=== PATIENT | male | born 1960 | race Caucasian/White ===

== ENCOUNTER 2019-08-03 22:20 | Observation (INO) ==
--- NOTE | 2019-08-03 23:01 | PROVIDER DOCUMENTATION ---
This chart was entered by Hugo Tolentino Scribe, acting as scribe for Bishnu Garrison MD. HPI-Neurological Disorder - General Chief Complaint: Headache Stated Complaint: HEAD PAIN Time Seen by Provider: 08/03/19 22:30 Source: patient, family Allergies/Adverse Reactions: Patient Allergies Allergy/AdvReac Type Severity Reaction Status Date / Time No Known Allergies Allergy Verified 08/03/19 22:50 Home Medications: Home Medication List Medication Instructions Recorded Confirmed Last Taken Type Multivitamin [Once Daily] 1 each PO DAILY 12/12/15 08/03/19 12/12/15 03:00 History Alprazolam 1 mg PO TID 08/01/19 08/03/19 Unknown History Celecoxib 1 cap PO DAILY 08/01/19 08/03/19 Unknown History Gabapentin 2 tab PO BID 08/01/19 08/03/19 Unknown History Phenelzine Sulfate 1 tab PO 4XDAY 08/01/19 08/03/19 Unknown History Quetiapine Fumarate 1 - 2 tab PO HS 08/01/19 08/03/19 Unknown History - History of Present Illness-Neuro Nature of Presenting Problem: Pt is a 59 yom who presents to the ED with a CC of headache. Pt reports he had surgery on his elbow five days ago. Pt reports he fell in his bathroom and hit his head four days ago. Pt reports he was seen here at [facility] two days ago for persistent headache and noted to have normal head CT. Pt reports he was sitting on his couch tonight, started coughing, and states he felt a pop in his head. Pt states since then he has had a severe headache and feel nauseas. Pt states it is a global headache. Headache Location: reports: global Severity: reports: mild Onset/Duration: reports: 1-3 hours ago Timing: reports: still present Character of Altered Mental Status: reports: confused Any recent trauma/injury?: reports: minor, to head Cognitive Baseline: alert but confused Gait Baseline: walks without assistance Associated Symptoms: reports: headache, nausea Similar Symptoms Previously?: Yes Recently seen or treated by another doctor?: Yes Review of Systems - Adult - REVIEW OF SYSTEMS - ADULT Constitutional: reports: see HPI Eyes: reports: see HPI Ears, Nose, Mouth & Throat: reports: no symptoms reported Cardiovascular: reports: no symptoms reported Respiratory: reports: see HPI, cough Gastrointestinal: reports: see HPI, nausea Genitourinary: reports: no symptoms reported Musculoskeletal: reports: see HPI, muscle aches Integumentary: reports: no symptoms reported Neurological: reports: see HPI, headache/migraines Psychiatric: reports: no symptoms reported Endocrine: reports: no symptoms reported Hematologic/Lymphatic: reports: no symptoms reported Allergic/Immunologic: reports: no symptoms reported All Other Systems: Reviewed and Negative Past History - Adult - PAST MEDICAL HISTORY-ADULT Review of Records: reports: Old Records Reviewed, Nursing Assessment Review, Medications Reviewed, Social history reviewed & non-contributory. Major Childhood Illnesses: reports: denies history Cardiovascular: reports: denies history Respiratory: reports: denies history Gastrointestinal: reports: denies history Obstetrical/Gynecological: reports: denies history Genitourinary: reports: denies history Musculoskeletal: reports: denies history Neurological: reports: denies history Endocrine/Immune: reports: denies history Other Conditions: reports: denies history - IMMUNIZATION STATUS Childhood Immunizations: See Nurse Assessment Flu Vaccine: See Nurse Assessment - FAMILY HISTORY Family History: reviewed, not pertinent - SOCIAL HISTORY Smoking: denies, non-smoker Substance Use: none/never, denies Alcohol Use Frequency: never Physical Exam- Neurological - Physical Exam-Neuro Initial Vital Signs Reviewed: Yes General Appearance: alert, mild distress Eye Exam: right eye: abnormal pupil (dilated right pupil 5mm, 3mm left pupil), bilateral eye: EOMI HENMT: moist mucous membranes Head Injury: other Neck: non-tender, full range of motion Respiratory: chest non-tender, lungs clear, normal breath sounds, no pleuratic chest pain, no respiratory distress, no accessory muscle use Cardiovascular: normal peripheral pulses, regular rate, rhythm, no edema, no gallop, no JVD, no murmur Abdominal Exam: soft 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 Exam: abnormal pupil position Integumentary: normal color, warm/dry Progress - PLAN OF CARE/RESULTS Progress/Plan/Lab Results: Vital Signs - 8 hr 08/03/19 22:25 Temperature 97 F L Pulse Rate 53 L Respiratory Rate 16 Blood Pressure 184/98 O2 Sat by Pulse Oximetry 96 Laboratory Results - last 24 hr 08/03/19 08/03/19 08/03/19 23:08 23:08 23:16 WBC 8.07 RBC 4.96 Hgb 15.3 Hct 44.5 MCV 89.7 MCH 30.8 MCHC 34.4 RDW Std Deviation 12.4 Plt Count 181 MPV 10.6 H Immature Gran % (Auto) 0.6 H Neut % (Auto) 60.1 Lymph % (Auto) 22.8 [place] % (Auto) 10.8 H Eos % (Auto) 5.0 Baso % (Auto) 0.7 Immature Gran # (Auto) 0.05 H Neut # (Auto) 4.85 Lymph # (Auto) 1.84 [place] # (Auto) 0.87 H Eos # (Auto) 0.40 Baso # (Auto) 0.06 PT 13.0 INR 0.94 Sodium 137 Potassium 5.6 H Chloride 101 Carbon Dioxide 24 L Anion Gap 12 BUN 18 Creatinine 0.9 Estimated GFR/1.73 m2 > 60 BUN/Creatinine Ratio 20 Glucose 99 Calculated Osmolality 276 Calcium 9.6 Orders Category Date Time Status Oxygen Therapy- ED Nursing DIRECTED Care 08/03/19 23:[address] HEAD W/O CONTRAST [CT] Stat Exams 08/03/19 22:40 Taken BMP [BASIC METABOLIC PANEL] [CHEM] Stat Lab 08/03/19 23:08 Completed CBC WITH ELECTRONIC DIFF [HEME] Stat Lab 08/03/19 23:08 Completed PT [PROTIME WITH INR] [COAG] Stat Lab 08/03/19 23:16 Completed Morphine Med 08/03/19 23:52 Discontinued 2 mg IV NOW ONE Ondansetron [Zofran] Med 08/03/19 23:05 Discontinued 4 mg IV NOW ONE Result Diagrams: 08/03/19 23:08 08/03/19 23:08 - CONSULTS/PCP/HOSPITALIST Notification #1 *Consult/PCP/Hospitalist*: Dr. Zurita, hospitalist Time Discussed: 01:35 Consult Disposition: Admit Departure - Departure Date of Disposition Decision: 08/03/19 Time of Disposition Decision: 01:40 DIAGNOSIS: Headache Qualifiers: Headache type: unspecified Headache chronicity pattern: unspecified pattern Intractability: not intractable Qualified Code(s): R51 - Headache Blunt head injury Qualifiers: Encounter type: subsequent encounter Qualified Code(s): S09.8XXD - Other specified injuries of head, subsequent encounter Disposition: ADMITTED INPATIENT 09 Certified Medical Emergency: Emergent Condition: Stable Additional Instructions: ED Follow Up Instructions: You have been treated by a care provider in the Emergency Department. These instructions are being provided to you so you can have an understanding of how to care for yourself upon discharge. Upon discharge from the Emergency Department, you are responsible for making arrangements for follow-up care by a physician of your choice. Take all prescribed medications as directed. Return to the Emergency Department immediately for any new or worsening symptoms. You may call the Physician Referral phone number at [phone] of Physicians who are taking new patients. Referrals and Follow-Ups: Lino Stafford DO [Primary Care Provider] - Discharge Education: Migraine Headache, [id number] - Critical Care Note This patient required my direct & personal management of CC.: No Attestation - Physician/ MADHU Attestation Patient care was provided by Advanced Practice Provider:: No The physician spent face to face time with patient:: Yes Advanced Practice Provider documentation review:: Supervising physician onsite and consulted in the evaluation and care of this patient. The physician did have a face to face encounter with the patient. - NIH Stroke Scale Level of Consciousness: 0-Alert LOC Questions (ask month and age): 0-Answers Both Correctly Best Gaze (horizontal eye movement): 0-Normal Visual (use finger movement, counting or visual threat): 0-No Visual Loss Facial Palsy (show teeth or raise eyebrows & close eyes tght: 0-Symmetrical Movement Motor Function-left arm: 0-Normal Motor Function-right arm: 0-Normal Motor Function-left le-Normal Motor Function-right le-Normal Limb Ataxia(qhxkdr-fdzh-[id number], or heel to whitt): 0-No Ataxia Sensory(pin prick to face,arms,trunk,legs-compare side/side): 0-No Ataxia Dysarthria(Pt read words or say words Ex.Mama,Tip-Top,Thanks: 0-Normal Articulation Extinction and Inattention: 0-Normal NIH Total Score: 0 This chart was documented by the indicated scribe, (Hugo Tolentino, Scribe) and accurately reflects the services I performed and decisions made by me, Bishnu Garrison MD, as attested by the provider's signature.
[2019-08-03] MEDS ORDERED: ZOFRAN IV ONE (23:05)
[2019-08-03 23:34] LABS: BASO# 0.06 X1000 (0.0-0.2); BASO% 0.7 % (0.0-0.8); HEMATOCRIT 44.5 % (42.0-52.0); HEMOGLOBIN 15.3 g/dL (14.0-18.0); IMM GRAN# 0.05 X1000 (0.0-0.04); IMM GRAN% 0.6 % (0.0-0.5); LYMPH# 1.84 X1000 (1.2-3.4); LYMPH% 22.8 % (20.5-51.1); MCH 30.8 PG (27-31); MCHC 34.4 g/dL (33-37); MCV 89.7 FL (81-99); MONO# 0.87 X1000 (0.11-0.59); MONO% 10.8 % (1.7-9.3); MPV 10.6 FL (7.4-10.4); NEUT# 4.85 X1000 (1.4-6.5); NEUT% 60.1 % (42.2-75.2); PLT 181 X1000 (130-400); RBC 4.96 XMIL (4.7-6.1); RDW 12.4 % (11.5-14.5); WBC 8.07 X1000 (4.8-10.8)
[2019-08-03 23:48] LABS: INR 0.94
[2019-08-03] MEDS ORDERED: MORPHINE IV ONE (23:52)
[2019-08-04 00:03] LABS: AGAP 12; BUN 18 mg/dL (8-22); CALCIUM 9.6 mg/dL (8.8-10.2); CHLORIDE 101 mmol/L (98-107); COSMO 276; CREATININE 0.9 mg/dL (0.7-1.2); ESTIMATED GFR > 60; GLUCOSE 99 mg/dL (70-104); SODIUM 137 mmol/L (136-145); TCO2 24 mmol/L (25-35)
[2019-08-04 00:04] LABS: POTASSIUM 5.6 mmol/L (3.5-5.1)
[2019-08-04] MEDS ORDERED: ZOFRAN IV PRN (01:42)
[2019-08-04] MEDS ORDERED: FLU VACCINE IM ONE (03:32)
[2019-08-04] MEDS ORDERED: PNEUMOVAX 23 IM ONE (03:32)
[2019-08-04 03:59] LABS: AGAP 12; BUN 18 mg/dL (8-22); CALCIUM 9.4 mg/dL (8.8-10.2); CHLORIDE 102 mmol/L (98-107); COSMO 274; CREATININE 0.9 mg/dL (0.7-1.2); ESTIMATED GFR > 60; GLUCOSE 106 mg/dL (70-104); POTASSIUM 4.6 mmol/L (3.5-5.1); SODIUM 136 mmol/L (136-145); TCO2 23 mmol/L (25-35)
--- NOTE | 2019-08-04 05:03 | Diag Imaging Result Doc PS360 ---
EXAM: CT HEAD W/O CONTRAST HISTORY: headache, unequal pupils TECHNIQUE: CT head without contrast COMPARISON: 08/01/2019 FINDINGS: No parenchymal hemorrhage. No epidural or subdural hematoma. No subarachnoid hemorrhage. Mild atrophy. No mass identified on this noncontrasted exam. No hydrocephalus. No sinus opacification. IMPRESSION: No hemorrhage. No change. A preliminary report was given at the time of the exam. This exam was performed using automated exposure control, adjustment of mA or kV according to patient size, and/or use of iterative reconstruction technique. Electronically signed by Anupam Leone 08/04/2019 5:01 AM
[2019-08-04] MEDS: TYLENOL PO PRN ×2 (06:57→23:04)
[2019-08-04] MEDS ORDERED: NEURONTIN PO SCH (09:00)
[2019-08-04] MEDS ORDERED: CELEBREX PO SCH (09:00)
--- NOTE | 2019-08-04 09:24 | HISTORY AND PHYSICAL ---
PRIMARY CARE PHYSICIAN: Dr. Lino Stafford. CHIEF COMPLAINT: Headache after he fell in his bathroom and hit his head 4 days ago. HISTORY OF PRESENTING ILLNESS: This is a 59-year-old male who presents to [facility] ER with complaints of a headache. He states that approximately 5 days ago he had surgery on his right elbow. The next day he was up in his bathroom and fell and hit his head. He states that he did not lose consciousness, but has had a headache that has progressively worsened. States it is exacerbated by bright lights. He was apparently in the emergency room on 08/01/2019. Had a head CT at that time that showed no acute injury, was discharged home and states that the headaches are global throughout his head. He has had some blurred vision, dizziness, nausea, so he came back to the emergency room and his head CT now shows no hemorrhage and no change. He has had some confusion as well. On arrival, his pupils were noted to be unequal. The right was dilated to 5 mm and the left at 3 mm so he was admitted for further evaluation and treatment. PAST MEDICAL HISTORY: Anxiety, depression. PAST SURGICAL HISTORY: 1. Right elbow surgery 5 to 6 days ago. 2. Left elbow tendon repair. 3. Left rotator cuff repair. 4. Sinus surgery. FAMILY HISTORY: Reviewed and noncontributory. SOCIAL HISTORY: Currently lives with family. Denies any tobacco, alcohol or illicit drug use. ALLERGIES: He has no known drug allergies. HOME MEDICATIONS: 1. He takes Xanax 1 mg p.o. t.i.d. 2. Celebrex 200 mg p.o. daily. 3. Gabapentin 1200 mg p.o. b.i.d. 4. Multivitamin once daily. 5. Phenylzin 15 mg p.o. 4 times daily. 6. We need to verify the dosage of his quetiapine and then will restart that. LABORATORY DATA: Showed a white blood cell count of 8.07, hemoglobin 15.3, hematocrit 44.5, platelets 181,000. PT and INR of 13 and 0.94. Sodium 137, potassium 5.6, chloride 101, CO2 24, BUN of 18, creatinine 0.9, glucose 99. Repeat potassium is back to normal this morning at 4.6. CT of the head showed no hemorrhage and no change. REVIEW OF SYSTEMS: He denied any fever, chills. He has had blurred vision, dizziness, headache, nausea. Denied any vomiting, constipation, diarrhea, burning or hurting with urination. PHYSICAL EXAMINATION: On arrival he had a temperature of 97 degrees, pulse 53, respirations 16, blood pressure was 184/98. Currently, blood pressure is down to 133/77. This morning he was saturating 89% on room air. GENERAL: This is a 59-year-old male who is sitting on the side of the bed eating breakfast and answers questions appropriately, but does have some confusion noted and forgetfulness. HEENT: Normocephalic, atraumatic. Normal ENT inspection. Oropharynx and nares are clear. Eyes: Pupils appear equal, round, reactive to light and accommodation. At this time, I do not see any deficits in their sizes of each pupil. He is sensitive to light. Extraocular movements are intact. NECK: Normal inspection, normal range of motion. LUNGS: Clear to auscultation bilaterally with equal lung expansion and chest wall movement. HEART: Regular rate and rhythm. No murmurs, rubs, or gallops. ABDOMEN: Soft, nontender, nondistended. Bowel sounds are present x4 quadrants. MUSCULOSKELETAL: He is noted to have a cast to his right arm status post his right elbow surgery. It is also in a sling but moves all of his other extremities well. NEUROLOGICAL: The cranial nerves 2-12 appear grossly intact. ASSESSMENT: 1. Status post fall with blunt head trauma. 2. Headache, secondary to a fall with likely concussion. 3. Hyperkalemia, resolved. 4. Anxiety and depression. PLAN: He was admitted to the medical unit, placed on telemetry. Neuro checks q.4 hours for 24 hours. Healthy heart diet. We are going to check an MRI of the brain with and without contrast. Continue his home medications as previously identified, again we need to verify the quetiapine dosage, then we will restart that and further orders after seen by attending. Dictated by ZEV Laguerre for Anibal Zurita MD cc: ZEV Laguerre MD Thomas E. Lockard,
[2019-08-04] MEDS: THERA M PLUS PO SCH (10:03)
[2019-08-04] MEDS: XANAX PO SCH ×3 (10:04→21:59)
[2019-08-04] MEDS ORDERED: NON-FORMULARY MED PO SCH ×2 (13:00→21:00)
--- NOTE | 2019-08-04 17:00 | Diag Imaging Result Doc PS360 ---
EXAM: MRI BRAIN W/WO CONTRAST HISTORY: Blunt head trauma TECHNIQUE: MRI brain with and without contrast. Axial, sagittal, and coronal images obtained in multiple sequences. These are followed the post contrasted axial and coronal images. COMPARISON: Recent CTs. FINDINGS: No recent infarct. Minimal microvascular ischemic changes. No hydrocephalus. No mass or midline shift. No enhancing lesion on the post contrasted images. No epidural or subdural fluid collection. Normal orbits. No sinus opacification. IMPRESSION: Minimal microvascular ischemic changes. Electronically signed by Anupam Leone 08/04/2019 4:57 PM
[2019-08-04] MEDS: NON-FORMULARY MED PO SCH (17:26)
[2019-08-04] MEDS: NEURONTIN PO SCH (21:59)
--- NOTE | 2019-08-04 22:19 | HISTORY AND PHYSICAL ---
ADDENDUM: Patient is a 59-year-old who sustained a head injury after fall after a right elbow surgery. He has been having issues with confusion off and on for the last several days. He is still having issues with confusion and headache. Neurological exam is nonfocal, but he does have confusion, altered mental status intermittently. We are concerned about possible concussion. We will pursue MRI and neural consult and monitor. His describes that he has altered mental status associated with his primary psychiatric disorder which is depression. She has contacted his primary psychiatrist who recommended adjusting his medications, decreasing Phenylzin and Neurontin and will see how he does neurologically and monitor closely. Although, concussion is still a primary diagnosis. cc: Anibal Zurita MD
[2019-08-05] MEDS: NON-FORMULARY MED PO SCH ×3 (06:19→17:11)
[2019-08-05 07:00] LABS: BASO# 0.05 X1000 (0.0-0.2); BASO% 0.8 % (0.0-0.8); EOS# 0.33 X1000 (0.0-0.7); EOS% 5.4 % (0.0-10.0); HEMOGLOBIN 13.1 g/dL (14.0-18.0); IMM GRAN# 0.02 X1000 (0.0-0.04); IMM GRAN% 0.3 % (0.0-0.5); LYMPH% 27.8 % (20.5-51.1); MCH 29.9 PG (27-31); MCHC 32.8 g/dL (33-37); MCV 91.3 FL (81-99); MONO% 11.5 % (1.7-9.3); MPV 10.6 FL (7.4-10.4); NEUT# 3.31 X1000 (1.4-6.5); NEUT% 54.2 % (42.2-75.2); PLT 174 X1000 (130-400); RBC 4.38 XMIL (4.7-6.1); RDW 12.5 % (11.5-14.5); WBC 6.11 X1000 (4.8-10.8)
[2019-08-05 07:18] LABS: CALCIUM 9.1 mg/dL (8.8-10.2); CREATININE 1.3 mg/dL (0.7-1.2); POTASSIUM 4.3 mmol/L (3.5-5.1)
[2019-08-05] MEDS: NEURONTIN PO SCH (10:11)
[2019-08-05] MEDS: THERA M PLUS PO SCH (10:11)
[2019-08-05] MEDS: XANAX PO SCH ×2 (10:11→15:19)
[2019-08-05] MEDS ORDERED: NS 1,000 ML IV ONE (10:29)
[2019-08-05] MEDS: TYLENOL PO PRN (10:30)
[2019-08-05] MEDS ORDERED: FLOMAX PO ONE (14:35)
[2019-08-05 15:49] VITALS: BP 109/80
[2019-08-05 16:17] LABS: BILIRUBIN URINE NEGATIVE (NEGATIVE); BLOOD URINE NEGATIVE (NEGATIVE); CLARITY CLEAR (CLEAR); COLOR YELLOW; GLUCOSE URINE NEGATIVE (NEGATIVE); KETONE URINE NEGATIVE (NEGATIVE); NITRITE URINE NEGATIVE (NEGATIVE); PH URINE 6.5; PROTEIN URINE NEGATIVE (NEGATIVE); URINE SOURCE CATH; UROBILINOGEN URINE NORMAL
[2019-08-05 16:18] LABS: LEUKOCYTES URINE NEGATIVE (NEGATIVE); URINE BACTERIA 1+ /HFP; URINE CAST NONE SEEN /LPF; URINE CRYSTAL NONE SEEN /HPF; URINE EPITHELIAL CELLS <10 /HPF (<10); URINE YEAST NONE SEEN /HPF
[2019-08-05 16:21] LABS: UR CREAT RANDOM 51.5 mg/dL (14-26)
[2019-08-05 16:24] LABS: UR AMPHETAMINES QUAL NONE DETECTED (NONE DETECT); UR BARBITUATES QUAL NONE DETECTED (NONE DETECT); UR BENZODIAZEPIN QUAL PRESUMPTIVE POSITIVE (NONE DETECT); UR CANNABINOIDS QUAL NONE DETECTED (NONE DETECT); UR COCAINE QUAL NONE DETECTED (NONE DETECT); UR METHADONE QUAL NONE DETECTED (NONE DETECT); UR METHAMPHETAMINE QUAL NONE DETECTED (NONE DETECT); UR OPIATES QUAL NONE DETECTED (NONE DETECT); UR OXYCODONE QUAL NONE DETECTED (NONE DETECT); UR PCP QUAL NONE DETECTED (NONE DETECT); UR PROPOXYPHENE QUAL NONE DETECTED (NONE DETECT); UR TCA QUAL NONE DETECTED (NONE DETECT)
[2019-08-05 16:35] LABS: UR PROT RANDOM 4.1 mg/dL
--- NOTE | 2019-08-05 17:43 | Diag Imaging Result Doc PS360 ---
CHEST-PORTABLE - 08/05/2019 INDICATION: hypoxia COMPARISON: None FINDINGS: Lung volumes are severely low, with pronounced right hemidiaphragm elevation. No infiltrates or edema. Heart size is normal. IMPRESSION: Low lung volumes. Nonspecific right hemidiaphragm elevation. Electronically signed by Freddy Santana 08/05/2019 5:41 PM
--- NOTE | 2019-08-05 19:30 | CONSULTATION ---
DATE OF CONSULTATION: 08/05/2019 Mr. Connolly has chief complaint of a headache. The family reports some apparent confusion. History is that he fell and struck the back of his head 7 days ago. He believes that he was not unconsciousness but he was not able to get up immediately. He reports trying to get up and he believes it took him about 10 minutes to eventually be up. He did not notice focal weakness, vision disturbance, or neck stiffness. He felt a little bit sore in the flanks, initially more on the left, and he also had some headache. The headache has become more frontotemporal and at the vertex. According to the family, he seemed to become confused a few days later and he was evaluated in the Emergency Room. Work up was negative including a noncontrast CT. He was discharged home. He seemed much better 2 days later (2 days ago) and then seemed to be more confused again yesterday. There was not any further altered consciousness, altered awareness, or memory gap. Speech might have been slurred but that is not certain. There was no focal neurologic deficit. He has not had much prior headaches. He does recall having headaches over a short period of time a few years ago and he is not certain about the reason for those headaches. Acetaminophen helped control the headache then. He reports no family history of headaches. There is no history of prior serious head injury. He has never had a diagnosed stroke, seizure, or other neurologic event. He avoids caffeine. Work up here includes another noncontrast CT of the head which was unremarkable. Brain MRI done with and without contrast was normal. Labs showed an elevated CK of 513. BUN was initially 28, later 18, and then again 26. HOME MEDICINES: include phenelzine, alprazolam and urine drug screen 4 days ago was positive for benzodiazepines. He does not have a tricyclic in his medication list but there may have been a cross-reaction and drug screen was positive for tricyclics. He reports the last medicine change was adding gabapentin a month ago and he believes that he stopped a medication then but he and the family cannot name the medication that was stopped. Gabapentin dose was reduced a few weeks ago. He continued phenelzine and other medicines up to the day before his elbow surgery last week. He resumed phenelzine and his other medicines either the day of surgery or the day after surgery. When he added phenelzine several months ago, he reports he did not tolerate it initially but reduced the dose and is tolerating it well now. The symptoms that he had when phenelzine was added were not like what he has experienced recently, according to the patient and family. He has prescription hydrocodone to use as needed but reports that he has not taken a dose and the confirms that she counted the pills and he had not had a dose since his elbow surgery last week. On exam, he is weak, alert, and attentive. His responses were slow but reasonable, appropriate, and generally accurate. Speech is slow but not dysarthric. Language function is intact on bedside testing. Recent and remote memory are good. He was completely oriented to all parameters except he missed the day of the month by 1 day. Head and neck are unremarkable. There is no meningismus. There is no cervical paraspinal spasm. He has good range of motion in the neck. I did not examine his bandaged right arm vigorously. He did rapid alternating movements well with the right fingers. He has good power in the left arm and in both legs. Tone is symmetric in the legs. He did well with left finger to nose. I did not test his gait. Plantar response is silent bilaterally. He reports good light touch appreciation symmetrically over the limbs. Proprioception is good as tested at the great toe bilaterally. IMPRESSION: No definite neurologic diagnosis. He does appear to be depressed. I cannot document definite cognitive impairment. I do not find a focal neurologic deficit. It sounds like he had closed head injury almost a week ago with likely concussion, possibly brief loss of awareness, and no definite evidence of traumatic brain injury. We discussed the possibility that headache and depression may be temporarily worse after a concussion and I hope that will resolve spontaneously. I do not have any specific suggestion right now. If problems persist or if he develops new trouble, we might consider EEG. I do not think repeat imaging is necessary now. Eventually, if depression greater than baseline persists, further psychiatry evaluation might be reasonable. We briefly discussed potential phenelzine interaction with medications but I do not think that is a problem. Problems with general anesthesia added to phenelzine have been reported but I do not think that is an issue here. I would continue current medicines and treat headache symptomatically. Hope he can be discharged soon. I will be glad to see him again, if needed. Thanks for asking Neurology to see Mr. Connolly. cc: MD HEATHER Summers III
--- NOTE | 2019-08-06 05:29 | DISCHARGE SUMMARY ---
ADMISSION DATE: 08/03/2019 DISCHARGE DATE: 08/05/2019 PRIMARY CARE PHYSICIAN: Dr. Lino Stafford. ADMISSION DIAGNOSES: 1. Status post fall with blunt head trauma. 2. Headache, secondary to fall with likely concussion. 3. Hyperkalemia, resolved. 4. Anxiety/depression. DISCHARGE DIAGNOSIS: 1. Status post fall with blunt head trauma. 2. Headache, secondary to fall with likely concussion. 3. Hyperkalemia, resolved. 4. Anxiety/depression. SUMMARY OF FINDINGS: This is a 59-year-old male who presented to the ER with complaints of a headache stating that 5 days prior to arrival he had surgery on his right elbow. The next day he got up to go to the bathroom and fell and hit his head. Stated that he did not lose consciousness, but had a severe headache that progressively worsened, was exacerbated by bright lights with dizziness and blurred vision. In the emergency room, his right eye was dilated to 5 mm and the left was [address] showed no hemorrhage and no change so he was admitted and we did a brain MRI that showed minimal microvascular ischemic changes. We consulted Neurology who did not find any adverse neurological findings at this time. His pupillary response and size have returned to normal. Neurology recommended that he follow up with his psychiatrist. He has been noted to have some urinary retention during this hospitalization as well so we are going to start him on some Flomax and have him follow up with Urology, but it is now felt that he can safely be discharged home today. DISCHARGE MEDICATIONS: Include alprazolam 1 mg p.o. t.i.d., multivitamin 1 p.o. daily, [id number] mg p.o. t.i.d., tamsulosin 0.4 mg p.o. daily, celecoxib 200 mg p.o. daily, gabapentin 600 mg p.o. b.i.d., quetiapine fumarate 25 mg p.o. t.i.d. FOLLOW-UP: He will need to follow up with his primary care physician in 1 to 2 weeks, with Neurology and with his psychiatrist. TIME SPENT: This is 35 minute discharge. Dictated by ZEV Laguerre for Anibal Zurita MD cc: ZEV Laguerre MD Thomas E. Lockard, DO MTDD
--- NOTE | 2019-08-06 05:50 | PROGRESS NOTE ---
DATE: 08/05/2019 SUBJECTIVE: Patient has no major complaints. OBJECTIVE: Blood pressure 109/80, heart rate 76, respiratory rate of 16, temperature 97.7 degrees, and 97% on room air.Cardiovascular: Regular rate and rhythm. Pulmonary: Bilateral breath sounds clear to auscultation. GI: Soft, nontender, and nondistended. Bowel sounds are positive. LABORATORY DATA: Creatinine did bump up a little bit. He does have some urinary retention, but it looks like he may have just some prerenal azotemia. Chest x-ray was clear. SUMMARY: His mental status has improved. His neurological workup is negative. Unclear if this is just a pure concussive syndrome. He has had his medications changed, and they were changed further after discussion with his primary psychiatrist. We will encourage follow up with them. The phenelzine will be decreased to 15 t.i.d. and the Neurontin 600 b.i.d. This is a [id number] encounter note with Susana Guerra. cc: Anibal Zurita MD
[2019-08-06] MEDS ORDERED: FLOMAX PO SCH (09:00)
== END 2019-08-05 18:28 | disposition home or self-care (01) ==
LOC: P.MEDSURG 22:20 → P.ED 22:20 → P.MEDSURG 08-05 04:35
PROVIDERS: ATTEND Internal Medicine